=== PATIENT | female | born 1985 | race Caucasian/White ===

== ENCOUNTER 2016-08-19 12:03 | Emergency (ER) | payer OTHER ==
[2016-08-19 12:10] VITALS: BP 128/92
[2016-08-19] MEDS ORDERED: Ibuprofen TAB* 800 MG PO ONE (12:50)
--- NOTE | 2016-08-19 13:24 | RAD ---
INDICATION: Sacrococcygeal injury. COMPARISON: There are no prior studies available for comparison. TECHNIQUE: 3 views of the sacrococcygeal spine were obtained. FINDINGS: The vertebra are in normal alignment. On the lateral view there is a radiolucent line extending through the posterior aspect of an upper coccygeal segment possibly representing a nondisplaced fracture. IMPRESSION: POSSIBLE NONDISPLACED FRACTURE OF THE COCCYX.
--- NOTE | 2016-08-19 13:46 | ED ---
Lower Extremity - HPI Summary HPI Summary: 30F presents with tailbone pain since last night. She states she slipped and feel down the stairs and landed on her tailbone. She is still able to ambulate with pain. She taken an oxycodone which did not help the pain. She also took a dose of ibuprofen last night. She denies any numbness or tingling or pain into her legs. She denies any loss of bowel or bladder or any saddle anaesthesia. - History of Current Complaint Chief Complaint: EDBackInjuryPain Stated Complaint: FALL DOWN STAIRS TAILBONE PAIN Time Seen by Provider: 08/19/16 12:31 Pain Intensity: 9 - Allergies/Home Medications Allergies/Adverse Reactions: Allergies Allergy/AdvReac Type Severity Reaction Status Date / Time No Known Allergies Allergy Verified 02/14/16 10:21 PMH/Surg Hx/FS Hx/Imm Hx Endocrine/Hematology History: Denies: Hx Anticoagulant Therapy Cardiovascular History: Denies: Hx Hypertension Infectious Disease History: No Infectious Disease History: Denies: Traveled Outside the [place] in Last 30 Days - Family History Known Family History: Positive: None - Per pt Negative: Hypertension - Social History Alcohol Use: Occasionally Substance Use Type: Reports: None Smoking Status (MU): Never Smoked Tobacco Review of Systems Negative: Fever Negative: Chest Pain Negative: Shortness Of Breath Positive: Myalgia - tailbone pain All Other Systems Reviewed And Are Negative: Yes Physical Exam Triage Information Reviewed: Yes Vital Signs On Initial Exam: Initial Vitals Temp Pulse Resp BP Pulse Ox 98.2 F 108 14 128/92 100 08/19/16 12:07 08/19/16 12:07 08/19/16 12:07 08/19/16 12:07 08/19/16 12:07 Vital Signs Reviewed: Yes Appearance: Positive: Well-Appearing Skin: Positive: Warm, Dry Head/Face: Positive: Normal Head/Face Inspection Eyes: Positive: Normal, Conjunctiva Clear Respiratory/Lung Sounds: Positive: Clear to Auscultation, Breath Sounds Present Cardiovascular: Positive: Normal, RRR Musculoskeletal: Positive: Other - tender over tailbone, neg SLR, good pulses Diagnostics - Vital Signs Vital Signs Temp Pulse Resp BP Pulse Ox 08/19/16 12:07 98.2 F 108 14 128/92 100 - Laboratory Lab Statement: Any lab studies that have been ordered have been reviewed, and results considered in the medical decision making process. - Radiology coccyx Xray Interpretation: Positive (See Comments) - IMPRESSION: POSSIBLE NONDISPLACED FRACTURE OF THE COCCYX. Radiology Interpretation Completed By: Radiologist Lower Extremity Course/Dx - Course Course Of Treatment: 30F presents with tailbone pain since last night. She states she slipped and feel down the stairs and landed on her tailbone. She is still able to ambulate with pain. she is tender over tailbone. xray shows possible coccyx fracture. will treat with doughnut pillow and laxatives. explained due to use narcoctic as cause constipation and can make pain worst. patient understands and agrees with plan - Diagnoses Differential Diagnosis/HQI/PQRI: Positive: Fracture (Closed), Sprain, Strain Provider Diagnoses: Fractured coccyx Discharge - Discharge Plan Condition: Good Disposition: HOME Prescriptions: Polyethylene Glycol 3350* [Miralax*] 17 gm PO DAILY #10 packet Patient Education Materials: Coccyx Injury (ED) Referrals: Artur GONG,Chandan Patrick [Primary Care Provider] - Additional Instructions: Take Ibuprofen 800mg every 6 hours for pain Use doughnut pillow to avoid putting pressure on area Increase fiber intake Take laxative once a day to avoid constipation Follow up with primary in 5 days Return to ED if develop any new or worsening symptoms
== END 2016-08-19 13:52 | disposition home or self-care (01) ==
LOC: ED 12:03
DX: S32.2XXA Fracture of coccyx, initial encounter for closed fracture (principal); W10.9XXA Fall (on) (from) unspecified stairs and steps, initial encounter; Y92.9 Unspecified place or not applicable
CPT/HCPCS: 72220; 99282; A9270-GY

== ENCOUNTER 2018-09-13 06:13 | Emergency (ER) | payer OTHER ==
[2018-09-13] MEDS ORDERED: Penicillin VK TAB* 250 MG PO ONE (06:40)
--- NOTE | 2018-09-13 06:42 | ED ---
Throat Pain/Nasal Congestion - HPI Summary HPI Summary: 32 year old female presents with right upper dental swelling since yesterday. States she broke her tooth a couple weeks ago. She started having increasing swelling this morning. She states she became anxious. She states she felt like her throat was closing. She did take some Benadryl which seemed to help. She denies any chest pain or shortness of breath. She states she feels like her heart is racing. She denies any fevers. No nausea vomiting. No pain or swelling around her eyes. Does not currently have a dentist. Has no medical conditions. - History of Current Complaint Chief Complaint: EDDentalPain Time Seen by Provider: 09/13/18 06:27 - Allergies/Home Medications Allergies/Adverse Reactions: Allergies Allergy/AdvReac Type Severity Reaction Status Date / Time No Known Allergies Allergy Verified 09/13/18 06:26 PMH/Surg Hx/FS Hx/Imm Hx Endocrine/Hematology History: Denies: Hx Anticoagulant Therapy Cardiovascular History: Denies: Hx Hypertension Infectious Disease History: No Infectious Disease History: Denies: Traveled Outside the [place] in Last 30 Days - Family History Known Family History: Positive: None - Per pt Negative: Hypertension - Social History Alcohol Use: None Substance Use Type: Reports: None Smoking Status (MU): Never Smoked Tobacco Review of Systems Negative: Fever Positive: Dental Pain Negative: Chest Pain Negative: Shortness Of Breath All Other Systems Reviewed And Are Negative: Yes Physical Exam Triage Information Reviewed: Yes Vital Signs On Initial Exam: Initial Vitals Temp Pulse Resp BP Pulse Ox 97.3 F 112 20 131/110 99 09/13/18 06:14 09/13/18 06:14 09/13/18 06:14 09/13/18 06:14 09/13/18 06:14 Vital Signs Reviewed: Yes Appearance: Positive: Well-Appearing Skin: Positive: Warm, Dry Head/Face: Positive: Normal Head/Face Inspection Eyes: Positive: Normal, EOMI, CHRISTOPHER, Conjunctiva Clear ENT: Positive: Pharynx normal, TMs normal Dental: Positive: Other - swelling noted to right upper check, no area of flutuance, no edema around eyes, nontender submandibular space Neck: Positive: Tenderness @ - cervical right, Enlarged Nodes @ - cervical right Respiratory/Lung Sounds: Positive: Clear to Auscultation, Breath Sounds Present Cardiovascular: Positive: Normal, RRR Abdomen Description: Positive: Nontender, Soft Bowel Sounds: Positive: Present Musculoskeletal: Positive: Normal Neurological: Positive: Normal Psychiatric: Positive: Normal Diagnostics - Vital Signs Vital Signs Temp Pulse Resp BP Pulse Ox 09/13/18 06:14 97.3 F 112 20 131/110 99 - Laboratory Lab Statement: Any lab studies that have been ordered have been reviewed, and results considered in the medical decision making process. EENT Course/Dx - Course Course Of Treatment: 32 year old female presents with right upper dental swelling since yesterday. States she broke her tooth a couple weeks ago. She started having increasing swelling this morning. She states she became anxious. She states she felt like her throat was closing. She did take some Benadryl which seemed to help. She denies any chest pain or shortness of breath. She states she feels like her heart is racing. She denies any fevers. No nausea vomiting. No pain or swelling around her eyes. Does not currently have a dentist. Has no medical conditions. On exam some swelling noted to her right upper jaw. No area of fluctuance noted. Tender anterior cervical lymph nodes on the right noted. Pharynx normal. Lungs clear to auscultation. Discussed that at this point do not suspect a deeper infection likely anxiety causing symptoms. Will place on penicillin. Told to follow up with dentist. Patient understands agrees with plan. - Differential Diagnoses Differential Diagnoses: Dental Abscess, Dental Caries, Fractured Tooth - Diagnoses Provider Diagnoses: Dental infection Discharge - Sign-Out/Discharge Documenting (check all that apply): Patient Departure Patient Received Moderate/Deep Sedation with Procedure: No - Discharge Plan Condition: Good Disposition: HOME Prescriptions: Penicillin VK TAB* [Penicillin VK 250 mg Tab*] 500 mg PO QID #27 tab Patient Education Materials: Dental Abscess (ED) Referrals: Artur GONG,Chandan Patrick [Primary Care Provider] - Additional Instructions: Take antibiotics: 4 times a day for 7 days, first dose given in ED Use ibuprofen or tyenlol every 6 hours Avoid hard, crunchy food until seen by dentist Follow up with dentist as soon as possible Return to ED if develop fever, shortness of breath, pain with eye movement or swelling around eye - Billing Disposition and Condition Condition: GOOD Disposition: Home
[2018-09-13 06:56] VITALS: BP 0/0
== END 2018-09-13 06:55 | disposition home or self-care (01) ==
LOC: ED 06:13
DX: K04.7 Periapical abscess without sinus (principal)
CPT/HCPCS: 99282; A9270-GY